=== PATIENT | male | born 1955 ===

== ENCOUNTER 2018-10-16 07:14 | Day surgery (SDC) | payer MEDICARE ==
[2018-10-16] MEDS ORDERED: Lactated Ringer's 1,000 ML IV ONE (08:50)
[2018-10-16] MEDS ORDERED: Propofol 10 mg/ml Inj (20 ML) ONE ×2 (08:56→09:01)
[2018-10-16 09:54] VITALS: TEMP 98.4; O2SAT 100
[2018-10-16 09:55] VITALS: RESP 12
[2018-10-16 09:56] VITALS: PULSE 60
[2018-10-16 10:26] VITALS: BP 144/93
== END 2018-10-16 10:25 | disposition home or self-care (01) ==
LOC: C.ENDO 07:14
PROVIDERS: ATTEND Internal Medicine Gastroenterology
DX: Z86.010 Personal history of colon polyps (principal); K64.1 Second degree hemorrhoids
CPT/HCPCS: 45378; J2405; J2704; J7120

== ENCOUNTER 2019-04-23 08:11 | Day surgery (SDC) | payer MEDICARE ==
[2019-04-22 13:39] VITALS: BMI 33.7
[2019-04-23 08:40] VITALS: O2SAT 98
--- NOTE | 2019-04-23 11:59 | CP.SDSHP ---
Same Day Surgery H & P - History Proposed Procedure: colonoscopy Pre-Op Diagnosis: history of colon polyps - Previous Medical/Surgical History Cardiac: Hypertension Endocrine/Metabolic: Thyroid Disease - Allergies Allergies: Allergies No Known Allergies Allergy (Verified 10/15/18 11:03) - Physical Exam General Appearance: NAD Vital Signs: Vital Signs 04/23/19 08:38 Temperature 97.1 F L Pulse Rate 63 Respiratory 18 Rate Blood Pressure 140/83 O2 Sat by Pulse 98 Oximetry Mental Status: Alert & Oriented x3 Neuro: WNL Heart: WNL Lungs: WNL GI: WNL - {Optional Preform as Required} Abdomen: WNL - Impression Pt. Evaluated Today:Candidate for Anesthesia & Procedure: Yes - Date & Time Date: 04/23/19 Time: 11:59 Short Stay Discharge - Short Stay Discharge Admitting Diagnosis/Reason for Visit: PERSONAL HISTORY OF COLONIC POLYPS Disposition: HOME/ ROUTINE
[2019-04-23] MEDS ORDERED: Lidocaine Hydrochloride 5 ML INJ ONE (12:11)
[2019-04-23] MEDS ORDERED: Propofol 10 mg/ml Inj (20 ML) ONE (12:11)
[2019-04-23] MEDS ORDERED: Lactated Ringer's 1,000 ML IV ONE (12:50)
[2019-04-23 14:39] VITALS: BP 118/71; PULSE 60; RESP 14; TEMP 97.2
== END 2019-04-23 13:40 | disposition home or self-care (01) ==
LOC: C.ENDO 08:11
PROVIDERS: ATTEND Internal Medicine Gastroenterology
DX: Z12.11 Encounter for screening for malignant neoplasm of colon (principal); K63.5 Polyp of colon; K57.30 Diverticulosis of large intestine without perforation or abscess without bleeding; K64.1 Second degree hemorrhoids; Z87.19 Personal history of other diseases of the digestive system; I10 Essential (primary) hypertension; E78.5 Hyperlipidemia, unspecified; E03.9 Hypothyroidism, unspecified; E55.9 Vitamin D deficiency, unspecified
CPT/HCPCS: 45380; 88305; J2704; J7120